=== PATIENT | male | born 1985 | race African-American/Black ===

== ENCOUNTER 2018-09-25 20:34 | Emergency (ER) | payer OTHER ==
[~2018-09-25 20:34] MED LIST: ISOVUE-370 76%-LOCM 1 ML ONE
[2018-09-25 21:13] LABS: Bilirubin Negative (Negative); Blood, Urine Small (Negative); Clarity CLEAR (Clear); Glucose, Urine (Dipstick) Negative (Negative); Leukocyte Negative (Negative); Nitrite Negative (Negative); Protein, Urine (Dipstick) Negative (Neg-Trace); Specific Gravity, Urine 1.003 (1.002-1.036); Urobilinogen 0.2 mg/dL (0.2-1.0); pH, Urine 6.5 (5.0-9.0)
[2018-09-25 21:15] LABS: Bacteria/HPF None Seen HPF (None Seen); Hyaline Casts/LPF 0-3 HYALINE CAST LPF (0-3 Hyaline); RBC/HPF 0-3 HPF (0-3); Squamous Epithelial None Seen HPF (0-3); WBC/HPF None Seen HPF (0-3)
[2018-09-25 21:59] LABS: ALT (SGPT) 8 U/L (8-55); AST (SGOT) 22 U/L (5-34); Albumin 3.9 g/dL (3.5-5.0); Alkaline Phosphatase 70 U/L (40-150); Anion Gap 10 mmol/L (10-20); BUN (Urea Nitrogen) 8 mg/dL (8.9-20.6); Bilirubin, Total 4.1 mg/dL (0.2-1.2); Calc. Creatinine Clearance 0 mL/min (70-130); Calcium 8.7 mg/dL (7.8-10.44); Carbon Dioxide 22 mmol/L (22-29); Chloride 108 mmol/L (98-107); Estimated GFR-MDRD Greater than 90; Globulin 3.2 g/dL (2.4-3.5); Glucose 96 mg/dL (70-105); Lipase 25 U/L (8-78); Potassium 3.7 mmol/L (3.5-5.1); Protein, Total 7.1 g/dL (6.0-8.3); Sodium 136 mmol/L (136-145)
[2018-09-25] MEDS ORDERED: Ketorolac Tromethamine 30 MG/ML VIAL ONE (22:34)
[2018-09-25 22:35] LABS: Anisocytosis MODERATE=16-30 cells (100X) (0-5/hpf); Band 17 % (5-11); Eosinophils 1 % (0-10); Hemoglobin 7.1 g/dL (14.0-18.0); Lymphocytes 12 % (21-51); MDiff Complete? YES; Mean Corpuscular Hemoglobin 37.8 pg (27.0-31.0); Mean Platelet Volume 7.6 fL (7.4-10.4); Monocytes 7 % (0-10); Neutrophil 63 % (42-75); Nucleated RBC 2 % (0); PLT Morphology Comment Appears Adequate; Platelet Count 414 thou/uL (130-400); Poikilocytosis MODERATE=16-30 cells (100X) (0-5/hpf); Polychromasia SLIGHT = 2-3 cells (100X) (0-2/hpf); RBC Distribution Width 21.7 % (11.5-14.5); Red Blood Cell (RBC) Count 1.87 mill/uL (4.70-6.10); Reflex for Review?? YES; Sickle Cells MODERATE= 6-15 cells (100X) (None Seen); White Blood Cell (WBC) Count 22.5 thou/uL (4.8-10.8)
[2018-09-25 22:38] LABS: Reticulocyte Count 19.3 % (0.5-1.5)
--- NOTE | 2018-09-25 22:50 | ULT ---
RIGHT UPPER QUADRANT ULTRASOUND: HISTORY: Pain. COMPARISON: 06/10/2017 TECHNIQUE: Utilizing a Multi-Hertz transducer, sonographic imaging of the right upper quadrant was performed in the longitudinal and transverse planes. FINDINGS: The head and body of the pancreas have a normal echotexture. The pancreatic tail is obscured. The IVC is patent. The hepatic parenchyma has a normal echotexture. No hepatic masses or intrahepatic biliary dilatatio n. The contour of the hepatic margin is maintained. The gallbladder is surgically absent. No hydronephrosis. The right kidney has a normal cortical echotexture. The right kidney measures 4. 3 x 11.7 x 6.8 cm. The common bile duct diameter is 0.6 cm. IMPRESSION: Unremarkable right upper quadrant ultrasound. POS: [facility]
[2018-09-25] MEDS ORDERED: cefTRIAXone\\ROCEPHIN 2 GM VIAL ONE (23:12)
--- NOTE | 2018-09-25 23:36 | RAD ---
CHEST ONE VIEW: HISTORY: Pain. COMPARISON: 04/03/2016 and 07/25/2017 FINDINGS: Normal cardiac silhouette. Pulmonary vessels and hilum are normal. Costophrenic angles are clear. Opacities in the lung bases may represent atelectasis or infiltrate. Adequate aeration of the upper lungs. No pneumothorax or osseous abnormalities. IMPRESSION: Bibasilar interstitial opacities, which may represent atelectasis or infiltrate. Continued surveilla nce is recommended. POS: [facility]
[2018-09-26] MEDS ORDERED: Morphine 4 MG/ML VIAL ONE ×2 (00:46→03:08)
[2018-09-26] MEDS ORDERED: Pantoprazole 40 MG VIAL ONE (00:46)
[2018-09-26] MEDS ORDERED: Piperacillin/Tazobactam 4.5 GM VIAL ONE (01:36)
--- NOTE | 2018-09-26 07:44 | CT ---
PRELIMINARY REPORT/[facility]/EMERGENTY AFTER-HOURS PROCEDURE CT Abdomen and Pelvis With Intravenous Contrast EXAM DATE/TIME: 09/25/2018 11:53 PM CLINICAL HISTORY: 33 years old, male; abd pain for x 2 days: ER 12; Iv contrast only per ordering doc; M33, HX hep c, s ickle cell TECHNIQUE: Axial computed tomography images of the abdomen and pelvis with intravenous contrast. Coronal reforma tted images were created and reviewed. COMPARISON: No relevant prior studies available. FINDINGS: Lower thorax: Bibasilar linear parenchymal scarring or subsegmental collapse / atelectasis. ABDOMEN: Liver: Normal. No mass. Gallbladder and bile ducts: Status post cholecystectomy. No biliary tract dilatation. Pancreas: Normal. No ductal dilation. Spleen: Prior splenectomy. Adrenals: Normal. No mass. Kidneys and ureters: Normal. No hydronephrosis. Stomach and bowel: On coronal images 37-50, likely stranding external to the duodenal bulb region whi ch may exhibit an ulceration on coronal image 39-40. Appendix: No evidence of appendicitis. PELVIS: Bladder: Unremarkable as visualized. Reproductive: Unremarkable as visualized. ABDOMEN and PELVIS: Intraperitoneal space: Normal. No free air. No significant fluid collection. Bones/joints: No acute fracture. No dislocation. Soft tissues: Unremarkable. Vasculature: Normal. No abdominal aortic aneurysm. Lymph nodes: Normal. No enlarged lymph nodes. IMPRESSION: 1. On coronal images 37-50, likely stranding external to the duodenal bulb region which may exhibit a n ulceration on coronal image 39-40. 2. Otherwise, no acute intra-abdominal or pelvic process. Thank you for allowing us to participate in the care of your patient. Dictated and Authenticated by: Mak Hanna MD 09/26/2018 4:40 AM Central Time ([place] & [place]) FINAL REPORT: ABDOMEN CT WITH CONTRAST PELVIC CT WITH CONTRAST: HISTORY: Sickle cell disease. Hepatitis C. Pain x 2 days. COMPARISON: 12/10/2013. FINDINGS: ABDOMEN CT: Atelectasis/scarring in the lung bases. No pleural effusion. No pneumothorax. Heart is enlarged. Descending thoracic aorta and abdominal aorta have a normal caliber. No periaortic fat stranding. S ymmetric attenuation of the psoas muscles. Intra- and extrahepatic portal vein is patent. Liver, pancreas, and adrenal glands have appropriate enhancement. The spleen is absent. Symmetric enhancement of the kidneys. Bilaterally, no obstructive uropathy. No gastrohepatic, retrocrural, or periportal lymphadenopathy. No mesenteric mass, lymphadenopathy, free air, or free fluid. Limited evaluation of the alimentary canal by the lack of oral contrast. Visualized small bowel loop s are unremarkable. Ileocecal junction is normal. Appendix is not appreciated. No inflammation of the cecal apex. Occasional diverticulum. No diverticulitis. No evidence of colon obstruction. The re appears to be edema and fluid adjacent to the gastric antrum. There appears to be eccentric and p ossibly extraluminal air. The possibility of a duodenal ulcer/gastric ulcer cannot be excluded. PELVIC CT: No mass, lymphadenopathy, free air, or free fluid. No lytic or blastic lesions in the osseous structures. IMPRESSION: Edema and fluid at the level of the gastric antrum and 1st portion of the duodenum. Correlate for ga stric ulcer/peptic ulcer. Small focus of extraluminal air is noted. Results of the study discussed with Monse Paul 09/26/2018 at 12:04 a.m. NOTE: [facility] report was generated AFTER the report was interpreted by [facility]. CODE CR POS: [facility]
== END 2018-09-26 03:37 | disposition short-term general hospital (02) ==
LOC: ERS 20:34
DX: K27.5 Chronic or unspecified peptic ulcer, site unspecified, with perforation (principal); D57.20 Sickle-cell/Hb-C disease without crisis; F31.9 Bipolar disorder, unspecified; F17.210 Nicotine dependence, cigarettes, uncomplicated; Z87.442 Personal history of urinary calculi; Z79.899 Other long term (current) drug therapy
CPT/HCPCS: 36415; 71045; 74177; 76705; 80053; 81003; 81015; 82248; 83615; 83690; 85025; 85046; 85060; 87040; 94760; 96361; 96365; 96375; 96376; C9113; J0696; J1885; J2270; J2543